=== PATIENT | female | born 1955 | race American Indian/Alaskan Native ===

== ENCOUNTER 2019-03-01 16:52 | Emergency (ER) | payer MEDICARE, OTHER ==
--- NOTE | 2019-03-01 18:41 | XRay Report ---
RIGHT FOOT 2 VIEWS INDICATION / CLINICAL INFORMATION: right foot pain, large fluid filled blister. COMPARISON: None available. FINDINGS: Very large homogeneous fluid/soft tissue density on the volar aspect of the foot. No radiopaque forei gn body. No skeletal abnormality. Signer Name: Homar Brandt MD Signed: 03/01/2019 6:36 PM Workstation Name: [id number]
--- NOTE | 2019-03-01 19:13 | Emergency Department Report ---
HPI - General Chief Complaint: Extremity Problem,Nontraumatic Time Seen by Provider: 03/01/19 18:04 - HPI HPI: 63-year-old female presents to the emergency department with the complaint of a blister to the bottom and side of her right foot. Overall they first noticed it about one week ago and it was about the size of a silver dollar. However they soaked her foot 2 days ago and since that time it grew in size to be much larger. The patient has some mild discomfort. 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 Patient's daughter is at bedside and says that the patient h as had history of blisters in the past and just now found out that it was diagnosed as bullous pemphigoid. ED Past Medical Hx - Past Medical History Previous Medical History?: Yes Hx Hypertension: Yes Hx Renal Disease: Yes Hx Arthritis: Yes Additional medical history: R.Sided weakness and facial droop from stroke 2012; gout; bullous dermatosis - Surgical History Past Surgical History?: No - Social History Smoking Status: Never Smoker Substance Use Type: None - Medications Home Medications: Home Medications Medication Instructions Recorded Confirmed Last Taken Type predniSONE [Deltasone] 20 mg PO QDAY #4 tab 03/01/19 Unknown Rx ED Review of Systems ROS: Stated complaint: R FOOT PAIN Other details as noted in HPI Comment: All other systems reviewed and negative Constitutional: denies: chills, fever Musculoskeletal: arthralgia Skin: lesions. denies: rash Neurological: denies: numbness, paresthesias Physical Exam - Physical Exam Vital Signs: Vital Signs 03/01/19 03/01/19 03/01/19 17:54 17:57 18:00 Temperature 97.8 F Pulse Rate 65 62 Respiratory 16 23 19 Rate Blood Pressure 184/94 Blood Pressure 184/94 [Left] O2 Sat by Pulse 96 96 97 Oximetry 03/01/19 03/01/19 18:15 18:31 Temperature Pulse Rate 64 62 Respiratory 12 20 Rate Blood Pressure 174/96 181/105 Blood Pressure [Left] O2 Sat by Pulse 96 97 Oximetry Physical Exam: GENERAL: The patient is well-developed well-nourished. HEENT: Normocephalic. Atraumatic. Patient has moist mucous membranes. EYES: Extraocular motions are intact. Pupils equal and reactive to light bilaterally. NECK: Supple. Trachea is midline CHEST/LUNGS: Clear to auscultation. There is no respiratory distress noted. HEART/CARDIOVASCULAR: Regular. There is no tachycardia. ABDOMEN: There is no abdominal distention. SKIN: Skin is warm and dry. Patient has a moderate to large bulla to the plantar and medial portion of the right foot. NEURO: The patient is awake and cooperative. MUSCULOSKELETAL: There is no tenderness or deformity. Chronic right-sided hemiparesis. There is no evidence of acute injury. ED Course Vital Signs 03/01/19 03/01/19 03/01/19 17:54 17:57 18:00 Temperature 97.8 F Pulse Rate 65 62 Respiratory 16 23 19 Rate Blood Pressure 184/94 Blood Pressure 184/94 [Left] O2 Sat by Pulse 96 96 97 Oximetry 03/01/19 03/01/19 18:15 18:31 Temperature Pulse Rate 64 62 Respiratory 12 20 Rate Blood Pressure 174/96 181/105 Blood Pressure [Left] O2 Sat by Pulse 96 97 Oximetry ED Medical Decision Making - Lab Data Result diagrams: 03/01/19 18:49 03/01/19 18:49 - Radiology Data Radiology results: image reviewed interpreted by me: X-ray of the right foot does not show any fracture, dislocation, osteomyelitis, or any other acute process. - Medical Decision Making This patient presents with a moderate to large sized blister to the right foot that grew over the past 2 days. She has some mild tenderness to palpation in this area. Labs are unremarkable. CBC and metabolic panel. X-ray does not show any fracture, dislocation, signs of osteomyelitis. While the patient's daughter was here in the emergency department, she signed into the patient's [facility] medical chart and found that she was recently diagnosed with bullous pemphigoid or bullous dermatosis. They also admit that the patient had some of these blisters in the past. She has an appointment on Monday with her [facility] physician. They were given a dose and prescription of some steroids. She will return to the ER with any worsening of her symptoms or any acute distress. The patient had some hypertension while she was here and does have a history of hypertension and was due for her nighttime hydralazine dose. I gave that to her here just prior to discharge. I am aware of the reading of 81% oxygen just prior to discharge but I believe this is a false number that was captured just as the patient was being discharged and did not have a good waveform. The patient has not had any signs of shortness of breath or respiratory distress during her entire ED course. - Differential Diagnosis bolus dermatosis, bullous pemphigoid Critical Care Time: No Critical care attestation.: If time is entered above; I have spent that time in minutes in the direct care of this critically ill patient, excluding procedure time. ED Disposition Clinical Impression: Bullous dermatosis, Hypertension Disposition: DC- TO HOME OR SELFCARE Is pt being admited?: No Condition: Stable Instructions: Hypertension (ED) Additional Instructions: He will appear to have an exacerbation of the bullous dermatosis, the blistering lesion. Please follow up with [facility] on Monday as previously scheduled. Take your blood pressure medications as prescribed. Try and stay away from foods that are high in salt and caffeinated products. Keep a blood pressure log. Prescriptions: predniSONE [Deltasone] 20 mg PO QDAY #4 tab Referrals: [facility] [Provider Group] - 2-3 Days Time of Disposition: 20:14
[2019-03-01 19:19] LABS: Hematocrit 38.4 % (30.3-42.9); Hemoglobin 12.3 gm/dl (10.1-14.3); Mean Corpuscular HGB Conc 32 % (30-34); Mean Corpuscular Volume 92 fl (79-97); Platelet Count 191 K/mm3 (140-440); Red Blood Count 4.19 M/mm3 (3.65-5.03); Red Cell Distribution Width 16.4 % (13.2-15.2)
[2019-03-01 20:02] LABS: Alanine Aminotransferase 10 units/L (7-56); Albumin 3.7 g/dL (3.9-5); BUN/Creatinine Ratio 28; Blood Urea Nitrogen 28 mg/dL (7-17); Calcium 9.2 mg/dL (8.4-10.2); Hemolysis Index 15
[2019-03-01] MEDS ORDERED: hydrALAZINE 25 MG TAB PO ONE (20:12)
[2019-03-01] MEDS ORDERED: predniSONE 20 MG TAB PO ONE (21:00)
[2019-03-01 21:16] VITALS: BP 189/97
== END 2019-03-01 21:16 | disposition home or self-care (01) ==
LOC: ED 16:52
DX: L13.8 Other specified bullous disorders (principal); I10 Essential (primary) hypertension; J45.909 Unspecified asthma, uncomplicated
CPT/HCPCS: 36415; 73620; 80053; 85025; 99284; J7512